=== PATIENT | male | born 1970 | race Caucasian/White ===

== ENCOUNTER 2017-12-16 11:15 | Emergency (ER) | payer BC ==
[2017-12-16 11:42] VITALS: TEMP 98.9; BMI 34.4
--- NOTE | 2017-12-16 11:58 | PDOC ---
History of Present Illness <Patricia Scott - Last Filed: 12/16/17 15:12> - General History Source: Patient Exam Limitations: No Limitations - History of Present Illness Initial Comments: 12/16/17 14:34 The patient is a 47 year old male with no significant PMH of who presents to the emergency department with chest pain for 2 days. The patient reports that he experienced a sudden onset of chest pain while at home yesterday. He describes his chest pain as a sharp squeezing pain, 9/10 in severity and worsened with movement and inspiration. The patient reports that his pain is left sided ad lasts 5-10 seconds at a time. He states that he has experienced similar episodes in the past but not as severe. He reports some associated shortness of breath . he denies any palpitations or sweating. The patient also reports some left leg numbness that he experiences 3-4 times a day an lasts at least 5 minutes. The patient denies any other symptoms. He denies any fever, chills, nausea, vomit, diarrhea, constipation or urinary symptoms. He denies any headache and dizziness. The patient denies any other complaints. <Frederic Briseno - Last Filed: 12/16/17 17:24> - General Chief Complaint: Chest Pain Stated Complaint: Chest Pain Time Seen by Provider: 12/16/17 11:56 Past History - Past Medical History COPD: No DVT: No - Suicide/Smoking/Psychosocial Hx Smoking History: Never smoked Have you smoked in the past 12 months: No Information on smoking cessation initiated: No Hx Alcohol Use: No Drug/Substance Use Hx: No Substance Use Type: None <Patricia Scott - Last Filed: 12/16/17 15:12> <Frederic Briseno - Last Filed: 12/16/17 17:24> - Past Medical History Allergies/Adverse Reactions: Allergies Allergy/AdvReac Type Severity Reaction Status Date / Time No Known Allergies Allergy Verified 12/16/17 11:42 Home Medications: Ambulatory Orders NK [No Known Home Medication] 12/16/17 Review of Systems - Review of Systems Able to Perform ROS?: Yes Comments:: 12/16/17 14:34 GENERAL/CONSTITUTIONAL: No fever or chills. No weakness. HEAD, EYES, EARS, NOSE AND THROAT: No change in vision. No ear pain or discharge. No sore throat. CARDIOVASCULAR: (+)chest pain, shortness of breath. RESPIRATORY: No cough, wheezing, or hemoptysis. GASTROINTESTINAL: No nausea, vomiting, diarrhea or constipation. GENITOURINARY: No dysuria, frequency, or change in urination. MUSCULOSKELETAL: (+)left leg numbness. No joint or muscle swelling or pain. No neck or back pain. SKIN: No rash NEUROLOGIC: No headache, vertigo, loss of consciousness, or change in strength/ sensation. ENDOCRINE: No increased thirst. No abnormal weight change. HEMATOLOGIC/LYMPHATIC: No anemia, easy bleeding, or history of blood clots. ALLERGIC/IMMUNOLOGIC: No hives or skin allergy. <Frederic Briseno - Last Filed: 12/16/17 17:24> *Physical Exam - Vital Signs Last Vital Signs Temp Pulse Resp BP Pulse Ox 98.9 F 95 H 16 134/74 100 12/16/17 11:39 12/16/17 11:39 12/16/17 11:39 12/16/17 11:39 12/16/17 11:39 <Patricia Scott - Last Filed: 12/16/17 15:12> - Vital Signs Last Vital Signs Temp Pulse Resp BP Pulse Ox 98.9 F 95 H 16 134/74 100 12/16/17 11:39 12/16/17 11:39 12/16/17 11:39 12/16/17 11:39 12/16/17 11:39 - Physical Exam Comments: 12/16/17 14:34 GENERAL: Awake, alert, and fully oriented, in no acute distress HEAD: No signs of trauma EYES: PERRLA, EOMI, sclera anicteric, conjunctiva clear ENT: Auricles normal inspection, hearing grossly normal, nares patent, oropharynx clear without exudates. Moist mucosa NECK: Normal ROM, supple, no lymphadenopathy, JVD, or masses LUNGS: Breath sounds equal, clear to auscultation bilaterally. No wheezes, and no crackles HEART: Regular rate and rhythm, normal S1 and S2, no murmurs, rubs or gallops ABDOMEN: Soft, nontender, normoactive bowel sounds. No guarding, no rebound. No masses EXTREMITIES: Normal range of motion, no edema. No clubbing or cyanosis. No cords, erythema, or tenderness NEUROLOGICAL: Cranial nerves II through XII grossly intact. Normal speech, normal gait SKIN: Warm, Dry, normal turgor, no rashes or lesions noted. <Frederic Briseno - Last Filed: 12/16/17 17:24> ED Treatment Course - LABORATORY CBC & Chemistry Diagram: 12/16/17 14:06 12/16/17 14:06 <Patricia Scott - Last Filed: 12/16/17 15:12> - LABORATORY CBC & Chemistry Diagram: 12/16/17 14:06 12/16/17 14:06 - ADDITIONAL ORDERS Additional order review: 12/16/17 14:06 RBC 3.89 L MCV 77.7 L MCHC 31.1 L RDW 20.5 H MPV 7.4 L Neutrophils % 40.0 L Lymphocytes % 25.4 Monocytes % 32.5 H Eosinophils % 1.4 Basophils % 0.7 - Medications Given in the ED: ED Medications Discontinued Medications Generic Name Dose Route Start Last Admin Trade Name Heathq PRN Reason Stop Dose Admin Ketorolac Tromethamine 30 mg 12/16/17 12:57 12/16/17 14:18 Toradol Injection - IVPUSH 12/16/17 12:58 30 mg ONCE ONE Administration <Frederic Briseno - Last Filed: 12/16/17 17:24> Medical Decision Making - Medical Decision Making 12/16/17 14:54 Pt presents to the ED complaining of a one day history of pleritic, sharp L sided chest pain that lasts seconds and is worse with movements of the torso. HEART score is 0. Pain is extremely atypical. Most likely muscular in origin. Will discharge home with follow up with medical clinic. Patient also has slight renal insufficiency and anemia. Will advise follow up for these conditions, as well. <Patricia Scott - Last Filed: 12/16/17 15:12> - Medical Decision Making 12/16/17 17:23 Call placed to patient at 5:22pm regarding lab error. The patient reports that he will return to the ED in about 1 hour. Documentation prepared by Frederic Briseno, acting as internist medical doctor md for Patricia Scott MD. <Frederic Briseno - Last Filed: 12/16/17 17:24> *DC/Admit/Observation/Transfer - Discharge Dispostion Decision to Admit order: No <Patricia Scott - Last Filed: 12/16/17 15:12> - Attestations Scribe Attestion: 12/16/17 14:34 Documentation prepared by Frederic Briseno, acting as internist medical doctor md for Patricia Scott MD. <Frederic Briseno - Last Filed: 12/16/17 17:24> Diagnosis at time of Disposition: Chest pain Qualifiers: Chest pain type: chest pain on breathing Qualified Code(s): R07.1 - Chest pain on breathing - Discharge Dispostion Disposition: HOME Condition at time of disposition: Good - Referrals Referrals: [facility] [place] [Provider Group] Chato Teresa MD [Staff Physician] - (3 pm 12/19/17) - Patient Instructions Printed Discharge Instructions: DI for Chest Pain Additional Instructions: return to the Ed for severe chest pain or shortness of breath, passing out, pain with fever, other new or changing symptoms. Call the medical clinic for follow up within two days. - Post Discharge Activity Forms/Work/School Notes: Back to Work
[2017-12-16] MEDS ORDERED: KETOROLAC TROMETHAMINE 30 MG/1 ML VIAL IVPUSH ONE (12:57)
[2017-12-16] MEDS ORDERED: KETOROLAC TROMETHAMINE 30 MG/1 ML VIAL ONE (13:40)
[2017-12-16 15:19] VITALS: BP 123/84; PULSE 88
== END 2017-12-16 15:19 | disposition home or self-care (01) ==
LOC: JER 11:15
PROC: 3E033NZ Introduction of Analgesics, Hypnotics, Sedatives into Peripheral Vein, Percutaneous Approach (ICD-10-PCS; principal; 2017-12-16)
DX: R07.89 Other chest pain (principal)
CPT/HCPCS: 36415; 80053; 82550; 84484; 85025; 99283-25

== ENCOUNTER 2017-12-16 18:58 | Emergency (ER) | payer BC ==
[2017-12-16 19:02] VITALS: BMI 34.4
--- NOTE | 2017-12-16 19:19 | PDOC ---
History of Present Illness - General History Source: Patient Exam Limitations: No Limitations - History of Present Illness Initial Comments: 12/16/17 19:45 The patient is a 47 year old male, with no significant past medical history, who presents to the emergency department for revisit to have lab work repeated due to a mix-up in the lab earlier today. The patient denies chest pain, shortness of breath, headache and dizziness. The patient denies fever, chills, nausea, vomit, diarrhea and constipation. The patient denies dysuria, frequency, urgency and hematuria. Allergies: NKDA <Amy Lopez - Last Filed: 12/16/17 19:45> <Sadaf Sharp - Last Filed: 12/16/17 20:56> - General Chief Complaint: Revisit, Lab Variance Stated Complaint: LABS Time Seen by Provider: 12/16/17 19:03 Past History <Amy Lopez - Last Filed: 12/16/17 19:45> - Past Medical History COPD: No DVT: No - Suicide/Smoking/Psychosocial Hx Smoking History: Never smoked Have you smoked in the past 12 months: No Hx Alcohol Use: No Drug/Substance Use Hx: No Substance Use Type: None <Sadaf Sharp - Last Filed: 12/16/17 20:56> - Past Medical History Allergies/Adverse Reactions: Allergies Allergy/AdvReac Type Severity Reaction Status Date / Time No Known Allergies Allergy Verified 12/16/17 11:42 Home Medications: Ambulatory Orders NK [No Known Home Medication] 12/16/17 Review of Systems - Review of Systems Able to Perform ROS?: Yes Comments:: 12/16/17 19:46 CONSTITUTIONAL: Absent: fever, no chills, no fatigue EYES: Absent: visual changes ENT: Absent: ear pain, no sore throat CARDIOVASCULAR: Absent: chest pain, no palpitations RESPIRATORY: Absent: cough, no SOB GI: Absent: abdominal pain, no nausea, no vomiting, no constipation, no diarrhea GENITOURINARY: Absent: dysuria, no frequency, no hematuria MUSCULOSKELETAL: Absent: back pain, no arthralgia, no myalgia SKIN: Absent: rash NEURO: Absent: headache <Amy Lopez - Last Filed: 12/16/17 19:45> *Physical Exam - Vital Signs Last Vital Signs Temp Pulse Resp BP Pulse Ox 98.4 F 95 H 18 118/72 98 12/16/17 19:00 12/16/17 19:00 12/16/17 19:00 12/16/17 19:00 12/16/17 19:00 - Physical Exam Comments: 12/16/17 19:47 GENERAL: Well-appearing, well-nourished. No apparent distress. HEENT: Normocephalic, atraumatic. PERRL, EOM intact. CARDIOVASCULAR: Normal S1, S2. Regular rate and rhythm. PULMONARY: Clear to auscultation bilaterally. ABDOMEN: Soft, non-distended, non-tender. EXTREMITIES: Normal ROM in all four extremities. No gross deformities. SKIN: Warm, dry. No rash NEUROLOGICAL: No focal neurological deficits. <Amy Lopez - Last Filed: 12/16/17 19:45> - Vital Signs Last Vital Signs Temp Pulse Resp BP Pulse Ox 98.4 F 95 H 18 118/72 98 12/16/17 19:00 12/16/17 19:00 12/16/17 19:00 12/16/17 19:00 12/16/17 19:00 <Sadaf Sharp - Last Filed: 12/16/17 20:56> ED Treatment Course - LABORATORY CBC & Chemistry Diagram: 12/16/17 19:29 12/16/17 19:29 <Amy Lopez - Last Filed: 12/16/17 19:45> - LABORATORY CBC & Chemistry Diagram: 12/16/17 19:29 12/16/17 19:29 <Sadaf Sharp - Last Filed: 12/16/17 20:56> Medical Decision Making - Medical Decision Making 12/16/17 19:20 this 47 yo male returns to the emergency dept for repeat blood draw because there is concern there was a lab mix up and the blood labeled with his name may have belonged to different patient 12/16/17 20:53 pt's second set pf labs results are vastly different from his earlier labs.He has no anemia, no renal insufficiency -trop is again negative <Sadaf Sharp - Last Filed: 12/16/17 20:56> *DC/Admit/Observation/Transfer - Attestations Scribe Attestion: 12/16/17 19:47 Documentation prepared by Amy Lopez, acting as medical facilities section director for Sadaf Sharp MD <Amy Lopez - Last Filed: 12/16/17 19:45> <Sadaf Sharp - Last Filed: 12/16/17 20:56> Diagnosis at time of Disposition: Hyperglycemia Chest pain Qualifiers: Chest pain type: unspecified Qualified Code(s): R07.9 - Chest pain, unspecified - Discharge Dispostion Disposition: HOME Condition at time of disposition: Stable - Patient Instructions Printed Discharge Instructions: DI for Chest Pain, DI for Hyperglycemia -- Adult Additional Instructions: please followup with you regular physician return for any worsening symptoms
[2017-12-16 19:50] LABS: BASO % 0.7 % (0-2.0); EOS % 1.2 % (0-4.5); HEMATOCRIT 43.6 % (35.4-49); HEMOGLOBIN 14.9 GM/dL (11.7-16.9); MCH 30.5 pg (25.7-33.7); MCHC 34.2 g/dl (32.0-35.9); MEAN CELL VOLUME 89.1 fl (80-96); MEAN PLT VOLUME 8.2 fl (7.5-11.1); MONO % 7.6 % (3.8-10.2); NEUT % 70.5 % (42.8-82.8); PLATELET COUNT 230 K/MM3 (134-434); RBC 4.89 M/mm3 (4.00-5.60); RDW 12.8 % (11.9-15.9); WHITE BLOOD COUNT 6.3 K/mm3 (4.0-10.0)
[2017-12-16 20:16] LABS: ALBUMIN 3.7 g/dl (3.4-5.0); ANION GAP 9 MMOL/L (8-16); BILIRUBIN,TOTAL 0.3 mg/dL (0.2-1.0); BLOOD UREA NITROGEN 13 mg/dL (7-18); CALCIUM 9.1 mg/dL (8.5-10.1); CHLORIDE 105 mmol/L (98-107); CO2 30 mmol/L (21-32); CREATININE 1.1 mg/dL (0.7-1.3); GLUCOSE,RANDOM 156 mg/dL (74-106); POTASSIUM 3.8 mmol/L (3.5-5.1); SGOT/AST 22 U/L (15-37); SGPT/ALT 47 U/L (12-78); SODIUM 144 mmol/L (136-145)
[2017-12-16 20:17] LABS: ALK PHOS 79 U/L (45-117)
[2017-12-16 21:37] VITALS: BP 120/74; PULSE 72; TEMP 98.2
== END 2017-12-16 21:32 | disposition home or self-care (01) ==
LOC: JER 18:58
DX: R07.9 Chest pain, unspecified (principal); R73.9 Hyperglycemia, unspecified
CPT/HCPCS: 36415; 80053; 84484; 85025; 99282-25